=== PATIENT | female | born 1960 | race Caucasian/White ===

== ENCOUNTER → 2016-08-29 | Outpatient (REF) | payer OTHER ==
[~2016-08-29] MED LIST: CORE6.25 PO; IBUP200C PO; JANU100T PO; LISI20TA PO; METF1000 PO; OMEP40CA2 PO; ONGL1TAB9 PO; PEPC1TAB2 PO; PRIL20CA9 PO
[2016-08-29 18:02] LABS: ALBUMIN 3.6 GM/DL (3.2-5.2); ALBUMIN/GLOBULIN RATIO 0.88 (1.00-1.93); ALKALINE PHOSPHATASE 86 U/L (45-117); ALT/SGPT 18 U/L (12-78); ANION GAP 9 MEQ/L (8-16); AST/SGOT 10 U/L (15-37); BILIRUBIN,TOTAL 0.3 MG/DL (0.2-1.0); BLOOD UREA NITROGEN 11 MG/DL (7-18); CALCIUM LEVEL 8.6 MG/DL (8.5-10.1); CARBON DIOXIDE LEVEL 28 MEQ/L (21-32); CHLORIDE LEVEL 105 MEQ/L (98-107); CHOLESTEROL LEVEL 149 MG/DL (<200); CREATININE FOR GFR 0.63 MG/DL (0.55-1.02); GLOMERULAR FILTRATION RATE > 60.0 (>51); GLUCOSE, FASTING 162 MG/DL (70-105); POTASSIUM SERUM 4.6 MEQ/L (3.5-5.1); SODIUM LEVEL 142 MEQ/L (136-145); TOTAL PROTEIN 7.7 GM/DL (6.4-8.2); TRIGLYCERIDES LEVEL 106 MG/DL (<150)
== END ==
LOC: M LAB REF 16:32
PROVIDERS: ATTEND Nurse Practitioner Family
DX: R82.99 Other abnormal findings in urine (principal); E55.9 Vitamin D deficiency, unspecified; E78.00 Pure hypercholesterolemia, unspecified

== ENCOUNTER → 2016-12-05 | Outpatient (REF) | payer OTHER ==
[2016-12-05 14:34] LABS: ANION GAP 7 MEQ/L (8-16); BLOOD UREA NITROGEN 10 MG/DL (7-18); CALCIUM LEVEL 9.1 MG/DL (8.5-10.1); CARBON DIOXIDE LEVEL 30 MEQ/L (21-32); CHLORIDE LEVEL 101 MEQ/L (98-107); CREATININE FOR GFR 0.69 MG/DL (0.55-1.02); GLOMERULAR FILTRATION RATE > 60.0 (>51); GLUCOSE, FASTING 146 MG/DL (70-105); POTASSIUM SERUM 4.5 MEQ/L (3.5-5.1); SODIUM LEVEL 138 MEQ/L (136-145)
== END ==
LOC: M LAB REF 13:18
PROVIDERS: ATTEND Nurse Practitioner Family
DX: E11.9 Type 2 diabetes mellitus without complications (principal)

== ENCOUNTER → 2017-01-29 | Outpatient (REF) | payer OTHER ==
[~2017-01-29] MED LIST changes: -IBUP200C PO; +IBUP200C10 PO; -METF1000 PO; +METF10004 PO
[2017-01-29 15:36] LABS: ALBUMIN 3.7 GM/DL (3.2-5.2); ALBUMIN/GLOBULIN RATIO 0.95 (1.00-1.93); ALKALINE PHOSPHATASE 71 U/L (45-117); ALT/SGPT 20 U/L (12-78); ANION GAP 6 MEQ/L (8-16); AST/SGOT 8 U/L (15-37); BILIRUBIN,TOTAL 0.3 MG/DL (0.2-1.0); BLOOD UREA NITROGEN 6 MG/DL (7-18); CALCIUM LEVEL 8.7 MG/DL (8.5-10.1); CARBON DIOXIDE LEVEL 29 MEQ/L (21-32); CHLORIDE LEVEL 104 MEQ/L (98-107); CREATININE FOR GFR 0.63 MG/DL (0.55-1.02); GLOMERULAR FILTRATION RATE > 60.0 (>51); GLUCOSE, FASTING 126 MG/DL (70-105); POTASSIUM SERUM 3.8 MEQ/L (3.5-5.1); SODIUM LEVEL 139 MEQ/L (136-145); TOTAL PROTEIN 7.6 GM/DL (6.4-8.2)
== END ==
LOC: M LAB REF 13:28
PROVIDERS: ATTEND Nurse Practitioner Family
DX: E55.9 Vitamin D deficiency, unspecified (principal); E11.9 Type 2 diabetes mellitus without complications

== ENCOUNTER → 2017-02-07 | Outpatient (CLI) | payer OTHER ==
--- NOTE | 2017-02-07 11:37 | REP ---
BILATERAL FOOT SERIES: Eight views. HISTORY: Pain. FINDINGS: Four views of each foot demonstrate vascular calcification bilaterally. There are bilateral plantar and Achilles calcaneal spurs. There is mild spurring at the 1st MTP joint on each side. No erosive changes seen. No fracture is noted. IMPRESSION: Bilateral heel spurs and vascular calcification. Minimal spurring at the 1st MTP joints bilaterally as well. Signed by Casey Tamayo MD 02/07/2017 11:52 A
== END ==
LOC: M RAD 10:38
PROVIDERS: ATTEND Family Medicine Addiction Medicine
DX: M79.671 Pain in right foot (principal); M79.672 Pain in left foot; M77.31 Calcaneal spur, right foot; M77.32 Calcaneal spur, left foot

== ENCOUNTER 2017-09-19 16:21 | Emergency (ER) | payer OTHER, MEDICAID ==
[2017-09-19] MEDS: IBUPROFEN 600 MG TAB PO (17:45)
== END 2017-09-19 18:11 | disposition home or self-care (01) ==
LOC: M ED 16:21
DX: S52.502A Unspecified fracture of the lower end of left radius, initial encounter for closed fracture (principal); S52.602A Unspecified fracture of lower end of left ulna, initial encounter for closed fracture; W19.XXXA Unspecified fall, initial encounter; Y92.9 Unspecified place or not applicable; Y93.9 Activity, unspecified; I51.9 Heart disease, unspecified; E11.9 Type 2 diabetes mellitus without complications; Z79.84 Long term (current) use of oral hypoglycemic drugs; Z79.899 Other long term (current) drug therapy; Z88.6 Allergy status to analgesic agent; Z88.0 Allergy status to penicillin; Z88.5 Allergy status to narcotic agent; Z88.8 Allergy status to other drugs, medicaments and biological substances
CPT/HCPCS: 73110

== ENCOUNTER → 2017-12-29 | Outpatient (REF) | payer OTHER ==
[2017-12-29 15:54] LABS: BASO % 0.3 % (0.0-1.0); EOS # 0.1 10^3/uL (0.0-0.50); EOS % 2.4 % (0.0-3.0); HEMATOCRIT 42.2 % (36.0-47.0); HEMOGLOBIN 13.3 g/dl (12.0-15.5); IMMATURE GRANULOCYTE % 0.2 % (0-3.0); LYMPH # 1.4 10^3/uL (1.5-4.5); LYMPH % 24.1 % (24.0-44.0); MEAN CORPUSCULAR HEMOGLOBIN 27.1 pg (27.0-33.0); MEAN CORPUSCULAR HGB CONC 31.5 g/dl (32.0-36.5); MEAN CORPUSCULAR VOLUME 86.1 fl (80.0-96.0); MONO # 0.3 10^3/uL (0.0-0.8); MONO % 5.7 % (0.0-5.0); NEUTROPHILS # 3.9 10^3/uL (1.8-7.7); NEUTROPHILS % 67.3 % (36.0-66.0); PLATELET COUNT, AUTOMATED 322 10^3/uL (150-450); RED CELL DISTRIBUTION WIDTH 14.6 % (11.5-14.5); WHITE BLOOD COUNT 5.8 10^3/uL (4.0-10.0)
[2017-12-29 16:10] LABS: ALBUMIN 3.4 GM/DL (3.2-5.2); ALBUMIN/GLOBULIN RATIO 0.83 (1.00-1.93); ALKALINE PHOSPHATASE 95 U/L (45-117); ALT/SGPT 16 U/L (12-78); ANION GAP 10 MEQ/L (8-16); AST/SGOT 10 U/L (7-37); BILIRUBIN,TOTAL 0.4 MG/DL (0.2-1.0); BLOOD UREA NITROGEN 5 MG/DL (7-18); C REACTIVE PROTEIN QUANTITATIV < 0.30 MG/DL (0.00-0.30); CALCIUM LEVEL 8.9 MG/DL (8.5-10.1); CARBON DIOXIDE LEVEL 27 MEQ/L (21-32); CHLORIDE LEVEL 100 MEQ/L (98-107); CREATININE FOR GFR 0.67 MG/DL (0.55-1.30); GLOMERULAR FILTRATION RATE > 60.0 (>51); GLUCOSE, FASTING 304 MG/DL (70-100); RHEUMATOID FACTOR QUANT < 10.0 IU/ML (<15.0); SODIUM LEVEL 137 MEQ/L (136-145); TOTAL PROTEIN 7.5 GM/DL (6.4-8.2); URIC ACID 3.1 MG/DL (2.6-6.0)
[2017-12-29 16:26] LABS: ERYTHROCYTE SEDIMENTATION RATE 27 mm/hr (0-30)
[2018-01-08 00:09] LABS: ANTINUCLEAR ANTIBODIES DIRECT Negative (Negative); HLA-B27 Negative (.); Lyme Disease IgG/IgM Antibodie <0.91 ISR (0.00-0.90); Lyme Disease IgM Ab Quantitati <0.80 index (0.00-0.79)
== END ==
LOC: M LABDRAW1 11:29
DX: S52.592D Other fractures of lower end of left radius, subsequent encounter for closed fracture with routine healing (principal); W18.30XD Fall on same level, unspecified, subsequent encounter; Y92.009 Unspecified place in unspecified non-institutional (private) residence as the place of occurrence of the external cause

== ENCOUNTER 2018-05-14 14:46 | Emergency (ER) | payer OTHER ==
[2018-05-14 16:11] LABS: BEDSIDE GLUCOSE 388 MG/DL (70-105)
[2018-05-14 16:41] LABS: BASO % 0.4 % (0.0-1.0); EOS # 0.2 10^3/uL (0.0-0.50); EOS % 1.9 % (0.0-3.0); HEMATOCRIT 43.4 % (36.0-47.0); HEMOGLOBIN 13.9 g/dl (12.0-15.5); IMMATURE GRANULOCYTE % 0.3 % (0-3.0); LYMPH # 2.1 10^3/uL (1.5-4.5); LYMPH % 26.3 % (24.0-44.0); MEAN CORPUSCULAR HEMOGLOBIN 27.6 pg (27.0-33.0); MEAN CORPUSCULAR VOLUME 86.3 fl (80.0-96.0); MONO # 0.4 10^3/uL (0.0-0.8); MONO % 4.7 % (0.0-5.0); NEUTROPHILS # 5.2 10^3/uL (1.8-7.7); NEUTROPHILS % 66.4 % (36.0-66.0); PLATELET COUNT, AUTOMATED 306 10^3/uL (150-450); RED BLOOD COUNT 5.03 10^6/uL (4.00-5.40); RED CELL DISTRIBUTION WIDTH 13.7 % (11.5-14.5); WHITE BLOOD COUNT 7.9 10^3/uL (4.0-10.0)
[2018-05-14] MEDS: HumuLIN R (REGULAR) INSULIN (NovoLIN R) **100U/ML** PER UNIT SC (17:11)
[2018-05-14 17:12] LABS: ALBUMIN 3.5 GM/DL (3.2-5.2); ALBUMIN/GLOBULIN RATIO 0.81 (1.00-1.93); ALKALINE PHOSPHATASE 101 U/L (45-117); ALT/SGPT 24 U/L (12-78); ANION GAP 9 MEQ/L (8-16); AST/SGOT 14 U/L (7-37); BILIRUBIN,DIRECT < 0.1 MG/DL (0.0-0.2); BILIRUBIN,TOTAL 0.2 MG/DL (0.2-1.0); BLOOD UREA NITROGEN 8 MG/DL (7-18); CALCIUM LEVEL 8.5 MG/DL (8.5-10.1); CARBON DIOXIDE LEVEL 29 MEQ/L (21-32); CHLORIDE LEVEL 100 MEQ/L (98-107); CREATININE FOR GFR 0.81 MG/DL (0.55-1.30); GLOMERULAR FILTRATION RATE > 60.0 (>51); GLUCOSE, FASTING 372 MG/DL (70-100); LIPASE 159 U/L (73-393); POTASSIUM SERUM 3.7 MEQ/L (3.5-5.1); SODIUM LEVEL 138 MEQ/L (136-145); TOTAL PROTEIN 7.8 GM/DL (6.4-8.2)
[2018-05-14] MEDS: IBUPROFEN 600 MG TAB PO (18:15)
[2018-05-14 18:19] LABS: BEDSIDE GLUCOSE 305 MG/DL (70-105)
[2018-05-14] MEDS: LISINOPRIL 20 MG TAB PO (19:50)
== END 2018-05-14 19:59 | disposition home or self-care (01) ==
LOC: M ED 14:46
DX: R51 Headache (principal); E11.9 Type 2 diabetes mellitus without complications; Z76.0 Encounter for issue of repeat prescription; F32.9 Major depressive disorder, single episode, unspecified; I10 Essential (primary) hypertension; K21.9 Gastro-esophageal reflux disease without esophagitis; E78.00 Pure hypercholesterolemia, unspecified
CPT/HCPCS: 83690

== ENCOUNTER → 2018-05-27 | Outpatient (REF) | payer OTHER ==
[2018-05-27 18:56] LABS: ALBUMIN 3.5 GM/DL (3.2-5.2); ALBUMIN/GLOBULIN RATIO 0.83 (1.00-1.93); ALKALINE PHOSPHATASE 86 U/L (45-117); ALT/SGPT 20 U/L (12-78); ANION GAP 9 MEQ/L (8-16); AST/SGOT 11 U/L (7-37); BILIRUBIN,TOTAL 0.3 MG/DL (0.2-1.0); BLOOD UREA NITROGEN 14 MG/DL (7-18); CALCIUM LEVEL 9.1 MG/DL (8.5-10.1); CARBON DIOXIDE LEVEL 28 MEQ/L (21-32); CHLORIDE LEVEL 98 MEQ/L (98-107); CHOLESTEROL LEVEL 282 MG/DL (<200); CREATININE FOR GFR 0.68 MG/DL (0.55-1.30); GLOMERULAR FILTRATION RATE > 60.0 (>51); GLUCOSE, FASTING 349 MG/DL (70-100); HDL CHOLESTEROL 47 MG/DL (>40); LDL CHOLESTEROL 188 MG/DL (<100); NON-HDL-C 235 MG/DL; POTASSIUM SERUM 4.8 MEQ/L (3.5-5.1); SODIUM LEVEL 135 MEQ/L (136-145); TOTAL 25(OH) VITAMIN D 22.3 NG/ML (30.0-100.0); TOTAL PROTEIN 7.7 GM/DL (6.4-8.2); TRIGLYCERIDES LEVEL 237 MG/DL (<150)
[2018-05-27 19:23] LABS: BASO % 0.5 % (0.0-1.0); EOS # 0.2 10^3/uL (0.0-0.50); EOS % 2.3 % (0.0-3.0); HEMATOCRIT 42.3 % (36.0-47.0); HEMOGLOBIN 13.5 g/dl (12.0-15.5); IMMATURE GRANULOCYTE % 0.4 % (0-3.0); LYMPH # 1.8 10^3/uL (1.5-4.5); LYMPH % 21.6 % (24.0-44.0); MEAN CORPUSCULAR HEMOGLOBIN 27.4 pg (27.0-33.0); MEAN CORPUSCULAR HGB CONC 31.9 g/dl (32.0-36.5); MEAN CORPUSCULAR VOLUME 85.8 fl (80.0-96.0); MONO # 0.4 10^3/uL (0.0-0.8); MONO % 4.2 % (0.0-5.0); PLATELET COUNT, AUTOMATED 308 10^3/uL (150-450); RED BLOOD COUNT 4.93 10^6/uL (4.00-5.40); RED CELL DISTRIBUTION WIDTH 13.7 % (11.5-14.5); WHITE BLOOD COUNT 8.4 10^3/uL (4.0-10.0)
[2018-05-27 20:01] LABS: ESTIMATED AVERAGE GLUCOSE 384 MG/DL (60-110)
== END ==
LOC: M LAB REF 16:57
DX: I10 Essential (primary) hypertension (principal); E11.9 Type 2 diabetes mellitus without complications; Z13.9 Encounter for screening, unspecified
CPT/HCPCS: 84443

== ENCOUNTER → 2018-05-29 | Outpatient (CLI) | payer OTHER | LOC: M RAD 12:18 | DX: Z12.31 Encounter for screening mammogram for malignant neoplasm of breast (principal); Z86.018 Personal history of other benign neoplasm; Z92.0 Personal history of contraception | CPT/HCPCS: 77067 ==

== ENCOUNTER → 2018-09-30 | Outpatient (REF) | payer OTHER ==
[~2018-09-30] MED LIST changes: +CARV6.25 PO; +IBUP-1022 PO; -IBUP200C10 PO; +IBUP200C25 PO; -PEPC1TAB2 PO; +PEPC40TA12 PO
[2018-09-30 19:10] LABS: ALBUMIN 3.8 GM/DL (3.2-5.2); ALT/SGPT 18 U/L (12-78); BILIRUBIN,TOTAL 0.4 MG/DL (0.2-1.0); BLOOD UREA NITROGEN 9 MG/DL (7-18); CALCIUM LEVEL 8.6 MG/DL (8.5-10.1); CARBON DIOXIDE LEVEL 29 MEQ/L (21-32); CHLORIDE LEVEL 100 MEQ/L (98-107); CHOLESTEROL LEVEL 295 MG/DL (<200); CHOLESTEROL RISK RATIO 5.363 (<5); CREATININE FOR GFR 0.68 MG/DL (0.55-1.30); GLOMERULAR FILTRATION RATE > 60.0 (>51); GLUCOSE, FASTING 260 MG/DL (70-100); HDL CHOLESTEROL 55 MG/DL (>40); LDL CHOLESTEROL 210 MG/DL (<100); NON-HDL-C 240 MG/DL; POTASSIUM SERUM 3.9 MEQ/L (3.5-5.1); SODIUM LEVEL 136 MEQ/L (136-145); TOTAL 25(OH) VITAMIN D 18.6 NG/ML (30.0-100.0); TOTAL PROTEIN 7.5 GM/DL (6.4-8.2); TRIGLYCERIDES LEVEL 150 MG/DL (<150)
[2018-09-30 19:11] LABS: BASO % 0.4 % (0.0-1.0); EOS # 0.2 10^3/uL (0.0-0.50); EOS % 2.1 % (0.0-3.0); HEMATOCRIT 39.9 % (36.0-47.0); HEMOGLOBIN 12.8 g/dl (12.0-15.5); LYMPH # 2.4 10^3/uL (1.5-4.5); LYMPH % 25.4 % (24.0-44.0); MEAN CORPUSCULAR HEMOGLOBIN 27.2 pg (27.0-33.0); MEAN CORPUSCULAR HGB CONC 32.1 g/dl (32.0-36.5); MEAN CORPUSCULAR VOLUME 84.7 fl (80.0-96.0); MONO # 0.4 10^3/uL (0.0-0.8); MONO % 3.9 % (0.0-5.0); NEUTROPHILS # 6.5 10^3/uL (1.8-7.7); PLATELET COUNT, AUTOMATED 365 10^3/uL (150-450); RED BLOOD COUNT 4.71 10^6/uL (4.00-5.40); WHITE BLOOD COUNT 9.5 10^3/uL (4.0-10.0)
[2018-09-30 19:20] LABS: HEMOGLOBIN A1c 10.3 %
== END ==
LOC: M LAB REF 18:13
PROVIDERS: ATTEND Nurse Practitioner Family
DX: I10 Essential (primary) hypertension (principal); Z13.9 Encounter for screening, unspecified; E11.9 Type 2 diabetes mellitus without complications

== ENCOUNTER → 2019-01-07 | Outpatient (REF) | payer OTHER ==
[2019-01-07 18:25] LABS: BASO % 0.4 % (0.0-1.0); EOS # 0.1 10^3/uL (0.0-0.50); EOS % 1.6 % (0.0-3.0); HEMATOCRIT 39.8 % (36.0-47.0); HEMOGLOBIN 12.6 g/dl (12.0-15.5); LYMPH % 26.3 % (24.0-44.0); MEAN CORPUSCULAR HEMOGLOBIN 27.2 pg (27.0-33.0); MEAN CORPUSCULAR HGB CONC 31.7 g/dl (32.0-36.5); MONO # 0.3 10^3/uL (0.0-0.8); MONO % 3.7 % (0.0-5.0); NEUTROPHILS # 5.2 10^3/uL (1.8-7.7); NEUTROPHILS % 67.7 % (36.0-66.0); PLATELET COUNT, AUTOMATED 320 10^3/uL (150-450); RED BLOOD COUNT 4.63 10^6/uL (4.00-5.40); WHITE BLOOD COUNT 7.6 10^3/uL (4.0-10.0)
[2019-01-07 18:31] LABS: ALBUMIN 3.2 GM/DL (3.2-5.2); ALT/SGPT 17 U/L (12-78); BILIRUBIN,TOTAL 0.3 MG/DL (0.2-1.0); BLOOD UREA NITROGEN 10 MG/DL (7-18); CALCIUM LEVEL 8.7 MG/DL (8.5-10.1); CARBON DIOXIDE LEVEL 28 MEQ/L (21-32); CHLORIDE LEVEL 103 MEQ/L (98-107); CHOLESTEROL LEVEL 245 MG/DL (<200); CHOLESTEROL RISK RATIO 5.212 (<5); CREATININE FOR GFR 0.74 MG/DL (0.55-1.30); GLOMERULAR FILTRATION RATE > 60.0 (>51); GLUCOSE, FASTING 303 MG/DL (70-100); HDL CHOLESTEROL 47 MG/DL (>40); LDL CHOLESTEROL 148 MG/DL (<100); NON-HDL-C 198 MG/DL; POTASSIUM SERUM 4.6 MEQ/L (3.5-5.1); SODIUM LEVEL 137 MEQ/L (136-145); TRIGLYCERIDES LEVEL 251 MG/DL (<150)
[2019-01-07 19:26] LABS: HEMOGLOBIN A1c 14.5 %
== END ==
LOC: M LAB REF 17:20
PROVIDERS: ATTEND Nurse Practitioner Family
DX: I10 Essential (primary) hypertension (principal)

== ENCOUNTER 2019-02-17 14:08 | Emergency (ER) | payer OTHER ==
[~2019-02-17] VITALS: Ht 149.9 cm; Wt 73.3 kg
[~2019-02-17 14:08] MED LIST changes: -LISI20TA PO; +LISI20TA19 PO
--- NOTE | 2019-02-17 14:46 | REP ---
Portable chest x-ray: Single view. History: Chest pain. Comparison chest x-ray: November 20, 2015. Findings: There is a large hiatal hernia again noted behind the heart. Heart is not enlarged. Lungs are well inflated and clear. Pleural angles are sharp. Pulmonary vasculature is not increased. Impression: Large hiatal hernia. Otherwise no acute disease. Electronically Signed by Casey Tamayo MD 02/17/2019 02:38 P
[2019-02-17 14:52] LABS: BASO % 0.4 % (0.0-1.0); EOS # 0.2 10^3/uL (0.0-0.5); EOS % 2.5 % (0.0-3.0); HEMATOCRIT 39.1 % (36.0-47.0); HEMOGLOBIN 12.6 g/dl (12.0-15.5); LYMPH # 1.7 10^3/uL (1.5-5.0); LYMPH % 21.9 % (24.0-44.0); MEAN CORPUSCULAR HGB CONC 32.2 g/dl (32.0-36.5); MEAN CORPUSCULAR VOLUME 83.7 fl (80.0-96.0); MONO # 0.4 10^3/uL (0.0-0.8); MONO % 5.1 % (0.0-5.0); NEUTROPHILS # 5.3 10^3/uL (1.5-8.5); NEUTROPHILS % 69.8 % (36.0-66.0); PLATELET COUNT, AUTOMATED 322 10^3/uL (150-450); RED BLOOD COUNT 4.67 10^6/uL (4.00-5.40); WHITE BLOOD COUNT 7.6 10^3/uL (4.0-10.0)
[2019-02-17] MEDS ORDERED: NS 1,000 ML IV SCH (14:53)
[2019-02-17] MEDS ORDERED: ASPIRIN 81 MG CHEW TABLET PO ONE (15:00)
[2019-02-17] MEDS ORDERED: LISINOPRIL 20 MG TAB PO ONE (15:00)
[2019-02-17 15:34] LABS: ALBUMIN 3.5 GM/DL (3.2-5.2); ALT/SGPT 16 U/L (12-78); BILIRUBIN,DIRECT < 0.1 MG/DL (0.0-0.2); BILIRUBIN,TOTAL 0.2 MG/DL (0.2-1.0); BLOOD UREA NITROGEN 16 MG/DL (7-18); CALCIUM LEVEL 9.9 MG/DL (8.5-10.1); CARBON DIOXIDE LEVEL 28 MEQ/L (21-32); CHLORIDE LEVEL 100 MEQ/L (98-107); CK-MB VALUE MASS < 1.0 NG/ML (<3.6); CPK CREATINE PHOSPHOKINASE 34 U/L (26-192); CREATININE FOR GFR 0.92 MG/DL (0.55-1.30); GLOMERULAR FILTRATION RATE > 60.0 (>51); GLUCOSE, FASTING 395 MG/DL (70-100); LIPASE 236 U/L (73-393); MB/CK RELATIVE INDEX 2.94 (< OR =4); POTASSIUM SERUM 5.6 MEQ/L (3.5-5.1); SODIUM LEVEL 136 MEQ/L (136-145); TOTAL PROTEIN 7.8 GM/DL (6.4-8.2); TROPONIN I < 0.02 NG/ML (< 0.10)
[2019-02-17] MEDS ORDERED: NS 500 ML IV ONE (15:45)
[2019-02-17] MEDS ORDERED: HumuLIN R (REGULAR) INSULIN (NovoLIN R) **100U/ML** PER UNIT IV ONE (15:45)
[2019-02-17 15:51] LABS: INR 0.92; PROTHROMBIN TIME 12.1 SECONDS (11.8-14.0)
[2019-02-17 17:30] VITALS: BP 138/77
--- NOTE | 2019-02-17 20:30 | ECGEPIP ---
[facility] - ED Test Date: 2019-02-17 Pat Name: FOSTER MUHAMMAD Department: Room: - Gender: Female E Business Consultant: ALIRIO : 1960 Requested By: OSWALD VIDES Order Number: [id number] Reading MD: Irma Swift Measurements Intervals [place] Rate: 100 P: 37 VA: 130 QRS: 15 QRSD: 82 T: 6 QT: 342 QTc: 443 Interpretive Statements SINUS TACHYCARDIA MINIMAL ST DEPRESSION ABNORMAL RHYTHM ECG PRWP INCREASED RATE 05/31/15 Electronically Signed on 02-17-2019 20:30:14 EDT by Irma Swift
== END 2019-02-17 18:22 | disposition home or self-care (01) ==
LOC: M ED 14:08
DX: E11.65 Type 2 diabetes mellitus with hyperglycemia (principal); I10 Essential (primary) hypertension; R00.0 Tachycardia, unspecified; R94.31 Abnormal electrocardiogram [ECG] [EKG]; I51.9 Heart disease, unspecified; E78.5 Hyperlipidemia, unspecified; K21.9 Gastro-esophageal reflux disease without esophagitis; K44.9 Diaphragmatic hernia without obstruction or gangrene; Z79.84 Long term (current) use of oral hypoglycemic drugs; Z79.899 Other long term (current) drug therapy; Z88.0 Allergy status to penicillin; Z88.8 Allergy status to other drugs, medicaments and biological substances; Z88.6 Allergy status to analgesic agent; Z88.5 Allergy status to narcotic agent

== ENCOUNTER → 2019-03-26 | Outpatient (CLI) | payer OTHER ==
[~2019-03-26] MED LIST changes: -OMEP40CA2 PO; +OMEP40CA97 PO
[2019-03-26 13:42] LABS: BASO % 0.3 % (0.0-1.0); EOS # 0.2 10^3/uL (0.0-0.5); EOS % 2.8 % (0.0-3.0); HEMATOCRIT 38.8 % (36.0-47.0); HEMOGLOBIN 12.5 g/dl (12.0-15.5); LYMPH # 2.1 10^3/uL (1.5-5.0); LYMPH % 31.3 % (24.0-44.0); MEAN CORPUSCULAR HEMOGLOBIN 27.7 pg (27.0-33.0); MEAN CORPUSCULAR HGB CONC 32.2 g/dl (32.0-36.5); MEAN CORPUSCULAR VOLUME 85.8 fl (80.0-96.0); MONO # 0.3 10^3/uL (0.0-0.8); MONO % 4.9 % (0.0-5.0); NEUTROPHILS # 4.1 10^3/uL (1.5-8.5); NEUTROPHILS % 60.6 % (36.0-66.0); PLATELET COUNT, AUTOMATED 333 10^3/uL (150-450); RED BLOOD COUNT 4.52 10^6/uL (4.00-5.40); WHITE BLOOD COUNT 6.7 10^3/uL (4.0-10.0)
[2019-03-26 14:01] LABS: HEMOGLOBIN A1c 12.1 %
[2019-03-26 15:33] LABS: ALBUMIN 3.4 GM/DL (3.2-5.2); ALT/SGPT 16 U/L (12-78); BILIRUBIN,TOTAL 0.6 MG/DL (0.2-1.0); BLOOD UREA NITROGEN 7 MG/DL (7-18); CALCIUM LEVEL 8.7 MG/DL (8.5-10.1); CARBON DIOXIDE LEVEL 27 MEQ/L (21-32); CHLORIDE LEVEL 102 MEQ/L (98-107); CHOLESTEROL LEVEL 228 MG/DL (<200); CHOLESTEROL RISK RATIO 5.066 (<5); CREATININE FOR GFR 0.66 MG/DL (0.55-1.30); GLOMERULAR FILTRATION RATE > 60.0 (>51); GLUCOSE, FASTING 276 MG/DL (70-100); HDL CHOLESTEROL 45 MG/DL (>40); LDL CHOLESTEROL 151 MG/DL (<100); NON-HDL-C 183 MG/DL; POTASSIUM SERUM 4.3 MEQ/L (3.5-5.1); SODIUM LEVEL 136 MEQ/L (136-145); TOTAL PROTEIN 7.4 GM/DL (6.4-8.2); TRIGLYCERIDES LEVEL 158 MG/DL (<150)
== END ==
LOC: M LAB 12:44
PROVIDERS: ATTEND Nurse Practitioner Family
DX: E11.9 Type 2 diabetes mellitus without complications (principal); I10 Essential (primary) hypertension

== ENCOUNTER 2019-05-25 12:44 | Emergency (ER) | payer OTHER ==
[~2019-05-25] VITALS: Ht 149.9 cm; Wt 75.5 kg
[2019-05-25 14:05] LABS: VENOUS BASE EXCESS -0.6 (-2.0-2.0); VENOUS HCO3 26.8 MEQ/L (23.0-27.0); VENOUS O2 SATURATION 40.1 % (60.0-80.0); VENOUS PARTIAL PRESSURE CO2 55.1 mmHg (38.0-50.0); VENOUS PARTIAL PRESSURE O2 24.7 mmHg (30.0-50.0); VENOUS PH 7.305 UNITS (7.330-7.430); VENOUS STANDARD HCO3 22.5 MEQ/L; VENOUS TOTAL CO2 28.5 MEQ/L (24.0-28.0)
[2019-05-25 14:09] LABS: HEMATOCRIT 45.6 % (36.0-47.0); HEMOGLOBIN 14.7 g/dl (12.0-15.5); MEAN CORPUSCULAR HEMOGLOBIN 27.3 pg (27.0-33.0); MEAN CORPUSCULAR HGB CONC 32.2 g/dl (32.0-36.5); MEAN CORPUSCULAR VOLUME 84.8 fl (80.0-96.0); PLATELET COUNT, AUTOMATED 359 10^3/uL (150-450); RED BLOOD COUNT 5.38 10^6/uL (4.00-5.40)
[2019-05-25 14:39] LABS: OSMOLALITY SERUM 301 MOSM/KG (275-295)
[2019-05-25 14:51] LABS: ACETONE/KETONE 4.88 MG/DL (<2.81); ALT/SGPT 20 U/L (12-78); BILIRUBIN,DIRECT 0.1 MG/DL (0.0-0.2); BILIRUBIN,TOTAL 0.4 MG/DL (0.2-1.0); BLOOD UREA NITROGEN 9 MG/DL (7-18); CALCIUM LEVEL 9.8 MG/DL (8.5-10.1); CARBON DIOXIDE LEVEL 30 MEQ/L (21-32); CHLORIDE LEVEL 96 MEQ/L (98-107); CK-MB VALUE MASS 1.1 NG/ML (<3.6); CPK CREATINE PHOSPHOKINASE 43 U/L (26-192); CREATININE FOR GFR 0.88 MG/DL (0.55-1.30); GLOMERULAR FILTRATION RATE > 60.0 (>51); GLUCOSE, FASTING 409 MG/DL (70-100); LIPASE 238 U/L (73-393); MAGNESIUM LEVEL 1.9 MG/DL (1.8-2.4); MB/CK RELATIVE INDEX 2.56 (< OR =4); POTASSIUM SERUM 4.5 MEQ/L (3.5-5.1); SODIUM LEVEL 133 MEQ/L (136-145); TOTAL PROTEIN 8.8 GM/DL (6.4-8.2); TROPONIN I < 0.02 NG/ML (< 0.10)
[2019-05-25 14:54] LABS: HEMOGLOBIN A1c 13.5 %
[2019-05-25] MEDS ORDERED: lisinopriL 20 MG TAB PO ONE (15:15)
[2019-05-25] MEDS ORDERED: NS 1,000 ML IV ONE (15:15)
[2019-05-25] MEDS ORDERED: CARVedilol 6.25 MG TAB PO ONE (15:15)
[2019-05-25] MEDS ORDERED: metFORMIN (GLUCOPHAGE) 1000 MG TABLET PO ONE (15:15)
[2019-05-25 15:24] VITALS: BP 190/104
[2019-05-25 17:13] VITALS: BP 156/92
== END 2019-05-25 17:16 | disposition home or self-care (01) ==
LOC: M ED 12:44
DX: E11.65 Type 2 diabetes mellitus with hyperglycemia (principal); I10 Essential (primary) hypertension; Z91.14 Patient's other noncompliance with medication regimen; E78.5 Hyperlipidemia, unspecified; K21.9 Gastro-esophageal reflux disease without esophagitis; Z79.84 Long term (current) use of oral hypoglycemic drugs; Z79.899 Other long term (current) drug therapy; Z88.0 Allergy status to penicillin; Z88.6 Allergy status to analgesic agent; Z88.5 Allergy status to narcotic agent; Z88.8 Allergy status to other drugs, medicaments and biological substances

== ENCOUNTER → 2019-07-02 | Outpatient (REF) | payer OTHER, MEDICAID ==
[2019-07-02 13:33] LABS: ALBUMIN 3.6 GM/DL (3.2-5.2); ALT/SGPT 24 U/L (12-78); BILIRUBIN,TOTAL 0.2 MG/DL (0.2-1.0); BLOOD UREA NITROGEN 11 MG/DL (7-18); CALCIUM LEVEL 8.7 MG/DL (8.5-10.1); CARBON DIOXIDE LEVEL 28 MEQ/L (21-32); CHLORIDE LEVEL 104 MEQ/L (98-107); CHOLESTEROL LEVEL 320 MG/DL (<200); GLOMERULAR FILTRATION RATE > 60.0 (>51); GLUCOSE, FASTING 140 MG/DL (70-100); HDL CHOLESTEROL 49 MG/DL (>40); LDL CHOLESTEROL 232 MG/DL (<100); NON-HDL-C 271 MG/DL; POTASSIUM SERUM 4.4 MEQ/L (3.5-5.1); SODIUM LEVEL 139 MEQ/L (136-145); TOTAL PROTEIN 7.6 GM/DL (6.4-8.2); TRIGLYCERIDES LEVEL 194 MG/DL (<150)
[2019-07-02 13:42] LABS: HEMOGLOBIN A1c 12.6 %
[2019-07-02 14:07] LABS: CREATININE, URINE 35.3 MG/DL; MALB URINE SIEMENS 18.7 MG/L; MAU/CREAT RATIO 52.9 MCG/MG (0.0-30.0)
== END ==
LOC: M LAB REF 12:15
PROVIDERS: ATTEND Family Medicine
DX: E11.9 Type 2 diabetes mellitus without complications (principal)

== ENCOUNTER → 2019-11-09 | Outpatient (REF) | payer OTHER, MEDICAID ==
[2019-11-09 12:30] LABS: BASO # 0.1 10^3/uL (0.0-0.2); BASO % 0.5 % (0.0-1.0); EOS # 0.4 10^3/uL (0.0-0.5); EOS % 4.6 % (0.0-3.0); HEMOGLOBIN 12.5 g/dl (12.0-15.5); LYMPH # 2.4 10^3/uL (1.5-5.0); LYMPH % 25.1 % (24.0-44.0); MEAN CORPUSCULAR HEMOGLOBIN 26.8 pg (27.0-33.0); MEAN CORPUSCULAR HGB CONC 31.3 g/dl (32.0-36.5); MEAN CORPUSCULAR VOLUME 85.8 fl (80.0-96.0); MONO # 0.4 10^3/uL (0.0-0.8); MONO % 4.4 % (0.0-5.0); NEUTROPHILS # 6.2 10^3/uL (1.5-8.5); NEUTROPHILS % 65.2 % (36.0-66.0); PLATELET COUNT, AUTOMATED 138 10^3/uL (150-450); RED BLOOD COUNT 4.66 10^6/uL (4.00-5.40); WHITE BLOOD COUNT 9.5 10^3/uL (4.0-10.0)
[2019-11-09 13:01] LABS: ALBUMIN 3.5 GM/DL (3.2-5.2); ALT/SGPT 17 U/L (12-78); BILIRUBIN,TOTAL 0.3 MG/DL (0.2-1.0); BLOOD UREA NITROGEN 7 MG/DL (7-18); CARBON DIOXIDE LEVEL 28 MEQ/L (21-32); CHLORIDE LEVEL 105 MEQ/L (98-107); CHOLESTEROL LEVEL 249 MG/DL (<200); CHOLESTEROL RISK RATIO 6.729 (<5); CREATININE FOR GFR 0.74 MG/DL (0.55-1.30); FREE T4 1.28 NG/DL (0.76-1.46); GLOMERULAR FILTRATION RATE > 60.0 (>51); GLUCOSE, FASTING 133 MG/DL (70-100); HDL CHOLESTEROL 37 MG/DL (>40); LDL CHOLESTEROL 163 MG/DL (<100); NON-HDL-C 212 MG/DL; POTASSIUM SERUM 3.8 MEQ/L (3.5-5.1); SODIUM LEVEL 141 MEQ/L (136-145); TOTAL PROTEIN 7.5 GM/DL (6.4-8.2); TRIGLYCERIDES LEVEL 246 MG/DL (<150)
[2019-11-09 18:37] LABS: HEMOGLOBIN A1c 8.3 %
== END ==
LOC: M LAB REF 11:41
PROVIDERS: ATTEND Physician Assistant
DX: E11.9 Type 2 diabetes mellitus without complications (principal); E78.5 Hyperlipidemia, unspecified; F43.21 Adjustment disorder with depressed mood

== ENCOUNTER → 2020-02-15 | Outpatient (REF) | payer OTHER, MEDICAID ==
[~2020-02-15] MED LIST changes: -LISI20TA19 PO; +LISI20TA35 PO
[2020-02-15 13:55] LABS: BASO % 0.4 % (0.0-1.0); EOS # 0.3 10^3/uL (0.0-0.5); EOS % 3.2 % (0.0-3.0); HEMATOCRIT 37.3 % (36.0-47.0); HEMOGLOBIN 11.7 g/dl (12.0-15.5); LYMPH # 1.8 10^3/uL (1.5-5.0); LYMPH % 22.5 % (24.0-44.0); MEAN CORPUSCULAR HEMOGLOBIN 26.6 pg (27.0-33.0); MEAN CORPUSCULAR HGB CONC 31.4 g/dl (32.0-36.5); MEAN CORPUSCULAR VOLUME 84.8 fl (80.0-96.0); MONO # 0.5 10^3/uL (0.0-0.8); MONO % 5.9 % (0.0-5.0); NEUTROPHILS # 5.3 10^3/uL (1.5-8.5); NEUTROPHILS % 67.7 % (36.0-66.0); PLATELET COUNT, AUTOMATED 307 10^3/uL (150-450); WHITE BLOOD COUNT 7.8 10^3/uL (4.0-10.0)
[2020-02-15 14:00] LABS: ALBUMIN 3.5 GM/DL (3.2-5.2); ALT/SGPT 14 U/L (12-78); BILIRUBIN,TOTAL 0.3 MG/DL (0.2-1.0); BLOOD UREA NITROGEN 9 MG/DL (7-18); CALCIUM LEVEL 8.4 MG/DL (8.5-10.1); CARBON DIOXIDE LEVEL 30 MEQ/L (21-32); CHLORIDE LEVEL 107 MEQ/L (98-107); CHOLESTEROL LEVEL 238 MG/DL (<200); CREATININE FOR GFR 0.71 MG/DL (0.55-1.30); FREE T4 1.21 NG/DL (0.76-1.46); GLOMERULAR FILTRATION RATE > 60.0 (>51); GLUCOSE, FASTING 144 MG/DL (70-100); HDL CHOLESTEROL 35 MG/DL (>40); LDL CHOLESTEROL 158 MG/DL (<100); NON-HDL-C 203 MG/DL; POTASSIUM SERUM 3.7 MEQ/L (3.5-5.1); SODIUM LEVEL 142 MEQ/L (136-145); TOTAL PROTEIN 7.2 GM/DL (6.4-8.2); TRIGLYCERIDES LEVEL 227 MG/DL (<150)
[2020-02-15 14:02] LABS: TOTAL 25(OH) VITAMIN D 15.8 NG/ML (30.0-100.0)
[2020-02-15 15:15] LABS: HEMOGLOBIN A1c 7.3 %
== END ==
LOC: M LAB REF 11:54
PROVIDERS: ATTEND Nurse Practitioner Family
DX: E11.8 Type 2 diabetes mellitus with unspecified complications (principal); E78.5 Hyperlipidemia, unspecified; Z13.9 Encounter for screening, unspecified; M54.89 Other dorsalgia; F32.9 Major depressive disorder, single episode, unspecified

== ENCOUNTER → 2020-03-14 | Outpatient (REF) | payer OTHER | LOC: M SFHCWAGY 13:08 | PROVIDERS: ATTEND Nurse Practitioner Women's Health | DX: Z12.4 Encounter for screening for malignant neoplasm of cervix (principal) ==

== ENCOUNTER → 2020-03-14 | Outpatient (CLI) | payer OTHER ==
--- NOTE | 2020-03-14 15:31 | REPMRS ---
Patient History The patient states she had a clinical breast exam in February 2020.No known family history of cancer. Benign stereotatic loc for ea lesion of the left breast, August 15, 2015. 2 benign excisional biopsies of the right breast. Took hormonal contraceptives for 10 years. 3D TOMOSYNTHESIS WAS PERFORMED. The Viola Adan lifetime risk for breast cancer is 10.6%. VOLPARA DENSITY B. Digital Woman Screen Mammo: March 14, 2020 - Exam #: [id number] Bilateral CC and MLO view(s) were taken. Technologist: Madisyn Ye, Technologist Prior study comparison: May 29, 2018, bilateral digital mammo screening bilat, performed at [facility]. July 19, 2015, digital mammo diagnostic bilateral, performed at [facility]. FINDINGS: There are scattered fibroglandular densities. There has been no change in the appearance of the mammogram from the prior studies. There is a mild amount of residual fibroglandular tissue which is fairly symmetric. There is no interval development of dominant mass, architectural distortion, or clustered microcalcification suggestive of malignancy. Assessment: BI-RADS/ACR category 1 mammogram. Negative Mammogram. Recommendation Routine screening mammogram in 1 year (for women over age 40). This mammogram was interpreted with the aid of an FDA-approved computer-aided dectection system. Electronically Signed By: Amrit Newton MD 03/14/20 [id number]
== END ==
LOC: M WHC 09:39
PROVIDERS: ATTEND Nurse Practitioner Women's Health
DX: Z12.31 Encounter for screening mammogram for malignant neoplasm of breast (principal); Z79.3 Long term (current) use of hormonal contraceptives

== ENCOUNTER → 2020-05-22 | Outpatient (REF) | payer OTHER ==
[2020-05-22 12:15] LABS: BASO % 0.4 % (0.0-1.0); EOS # 0.2 10^3/uL (0.0-0.5); EOS % 2.5 % (0.0-3.0); HEMATOCRIT 36.6 % (36.0-47.0); LYMPH # 1.7 10^3/uL (1.5-5.0); LYMPH % 19.9 % (24.0-44.0); MEAN CORPUSCULAR HEMOGLOBIN 25.6 pg (27.0-33.0); MEAN CORPUSCULAR HGB CONC 30.1 g/dl (32.0-36.5); MEAN CORPUSCULAR VOLUME 85.3 fl (80.0-96.0); MONO # 0.4 10^3/uL (0.0-0.8); NEUTROPHILS # 6.2 10^3/uL (1.5-8.5); NEUTROPHILS % 71.8 % (36.0-66.0); PLATELET COUNT, AUTOMATED 343 10^3/uL (150-450); RED BLOOD COUNT 4.29 10^6/uL (4.00-5.40); WHITE BLOOD COUNT 8.6 10^3/uL (4.0-10.0)
[2020-05-22 12:43] LABS: HEMOGLOBIN A1c 7.9 %
[2020-05-22 12:50] LABS: ALBUMIN 3.6 GM/DL (3.2-5.2); ALT/SGPT 20 U/L (12-78); BILIRUBIN,TOTAL 0.3 MG/DL (0.2-1.0); BLOOD UREA NITROGEN 15 MG/DL (7-18); CALCIUM LEVEL 8.8 MG/DL (8.8-10.2); CARBON DIOXIDE LEVEL 29 MEQ/L (21-32); CHLORIDE LEVEL 104 MEQ/L (98-107); CHOLESTEROL LEVEL 269 MG/DL (<200); CHOLESTEROL RISK RATIO 5.977 (<5); FREE T4 1.23 NG/DL (0.76-1.46); GLOMERULAR FILTRATION RATE > 60.0 (>45); GLUCOSE, FASTING 195 MG/DL (70-100); HDL CHOLESTEROL 45 MG/DL (>40); LDL CHOLESTEROL 182 MG/DL (<100); NON-HDL-C 224 MG/DL; POTASSIUM SERUM 4.4 MEQ/L (3.5-5.1); SODIUM LEVEL 139 MEQ/L (136-145); TOTAL 25(OH) VITAMIN D 19.9 NG/ML (30.0-100.0); TOTAL PROTEIN 7.6 GM/DL (6.4-8.2); TRIGLYCERIDES LEVEL 210 MG/DL (<150)
== END ==
LOC: M LAB REF 11:38
PROVIDERS: ATTEND Nurse Practitioner Family
DX: I10 Essential (primary) hypertension (principal); E78.5 Hyperlipidemia, unspecified

== ENCOUNTER → 2021-11-14 | Outpatient (CLI) | payer OTHER ==
[~2021-11-14] MED LIST changes: +OMEP40CA4 PO; -OMEP40CA97 PO
== END ==
LOC: M WHC 13:31
PROVIDERS: ATTEND Pediatrics
DX: E04.9 Nontoxic goiter, unspecified (principal); N95.9 Unspecified menopausal and perimenopausal disorder; M85.89 Other specified disorders of bone density and structure, multiple sites

== ENCOUNTER 2022-12-05 11:51 | Emergency (ER) | payer OTHER ==
[~2022-12-05] VITALS: Ht 144.8 cm; Wt 80.2 kg
[2022-12-05] MEDS ORDERED: ISOVUE-370 76% 100ML VIAL As Ordered ONE (12:41)
[2022-12-05 12:45] VITALS: BP 174/81; TEMP 97.5; O2SAT 97
[2022-12-05 13:00] VITALS: BP 175/88; O2SAT 97
[2022-12-05 13:02] LABS: BASO # 0.1 10^3/uL (0.0-0.2); BASO % 0.5 % (0.0-1.0); EOS # 0.2 10^3/uL (0.0-0.5); EOS % 2.4 % (0.0-3.0); HEMATOCRIT 35.9 % (36.0-47.0); HEMOGLOBIN 11.1 g/dl (12.0-15.5); LYMPH % 22.2 % (24.0-44.0); MEAN CORPUSCULAR HEMOGLOBIN 25.5 pg (27.0-33.0); MEAN CORPUSCULAR HGB CONC 30.9 g/dl (32.0-36.5); MEAN CORPUSCULAR VOLUME 82.5 fl (80.0-96.0); MONO # 0.4 10^3/uL (0.0-0.8); MONO % 4.8 % (2.0-8.0); NEUTROPHILS # 6.4 10^3/uL (1.5-8.5); NEUTROPHILS % 69.8 % (36.0-66.0); PLATELET COUNT, AUTOMATED 265 10^3/uL (150-450); RED BLOOD COUNT 4.35 10^6/uL (4.00-5.40); WHITE BLOOD COUNT 9.1 10^3/uL (4.0-10.0)
[2022-12-05 13:20] LABS: INR 0.93; PROTHROMBIN TIME 12.7 SECONDS (12.5-14.5)
[2022-12-05 13:21] LABS: BLOOD UREA NITROGEN 13 MG/DL (9-23); CALCIUM LEVEL 9.4 MG/DL (8.3-10.6); CARBON DIOXIDE LEVEL 28 MMOL/L (20-31); CHLORIDE LEVEL 103 MMOL/L (98-107); CK-MB VALUE MASS < 1.0 NG/ML (<3.6); CPK CREATINE PHOSPHOKINASE 42 U/L (34-145); CREATININE FOR GFR 0.89 MG/DL (0.55-1.30); GLOMERULAR FILTRATION RATE > 60.0 (>45); GLUCOSE, FASTING 110 MG/DL (74-106); MB/CK RELATIVE INDEX 2.38 (< OR =4); PARTIAL THROMBOPLASTIN TIME 24.8 SECONDS (24.8-34.2); POTASSIUM SERUM 3.7 MMOL/L (3.5-5.1); SODIUM LEVEL 138 MMOL/L (136-145)
[2022-12-05 14:25] LABS: RSV AMPLIFICATION NEGATIVE (NEGATIVE)
[2022-12-05] MEDS ORDERED: CIPROFLOXACIN 400 MG in IV 1 EA IV ONE (14:40)
[2022-12-05] MEDS ORDERED: IBUPROFEN 600MG TAB PO ONE (14:45)
[2022-12-05] MEDS ORDERED: MED REC IN PROGRESS XX SCH (14:55)
[2022-12-05] MEDS ORDERED: IBUP1TAB7 PO (15:18)
[2022-12-05] MEDS ORDERED: CARV25TA PO (15:18)
[2022-12-05] MEDS ORDERED: LISI20TA33 PO (15:20)
[2022-12-05] MEDS ORDERED: METF10004 PO (15:24)
[2022-12-05] MEDS ORDERED: DULA3PEN SQ (15:30)
[2022-12-05] MEDS ORDERED: JARD1TAB3 PO (15:33)
[2022-12-05] MEDS ORDERED: ASPI81CH33 PO (15:36)
[2022-12-05] MEDS ORDERED: ROSU20TA61 PO (15:38)
[2022-12-05] MEDS ORDERED: HOME MED LIST COMPLETE! XX SCH (15:45)
[2022-12-05] MEDS ORDERED: CIPR250T26 PO (16:02)
[2022-12-05 17:30] VITALS: BP 154/81; TEMP 97.1; O2SAT 98
[2022-12-07] MEDS ORDERED: MACR100C43 PO (13:30)
== END 2022-12-05 17:54 | disposition home or self-care (01) ==
LOC: M ED 11:51 → EDBD 11:51 → M ED 17:54
DX: N39.0 Urinary tract infection, site not specified (principal); R53.1 Weakness; E11.9 Type 2 diabetes mellitus without complications; I10 Essential (primary) hypertension; E78.5 Hyperlipidemia, unspecified; K44.9 Diaphragmatic hernia without obstruction or gangrene; Z79.82 Long term (current) use of aspirin; Z79.4 Long term (current) use of insulin; Z79.899 Other long term (current) drug therapy; Z88.0 Allergy status to penicillin; Z88.6 Allergy status to analgesic agent; Z88.5 Allergy status to narcotic agent; Z88.8 Allergy status to other drugs, medicaments and biological substances
CPT/HCPCS: 36415; 70450; 70496; 70498; 71045; 80047; 80048; 81001; 82550; 82553; 85025; 85610; 85730; 87088; 87186; 87631; 93005; 93041; 94760; 96365; 96366; 97161; 97530; 99285; J0744; Q9967

== ENCOUNTER → 2023-09-29 | Outpatient (REF) | payer OTHER ==
[~2023-09-29] MED LIST changes: +ASPI81CH33 PO; +CARV25TA PO; +CIPR250T26 PO; +DULA3PEN SQ; +IBUP1TAB7 PO; +JARD1TAB3 PO; +LISI20TA33 PO; +MACR100C43 PO; +ROSU20TA61 PO
[2023-09-29 18:31] LABS: HEMOGLOBIN A1c 8.4 % (4.0-6.0)
[2023-09-29 18:37] LABS: ALBUMIN 3.3 G/DL (3.2-5.2); ALKALINE PHOSPHATASE 49 U/L (46-116); ALT/SGPT 11 U/L (7.0-40); AST/SGOT 10 U/L (<34); BILIRUBIN,TOTAL 0.3 MG/DL (0.3-1.2); BLOOD UREA NITROGEN 9 MG/DL (9-23); CALCIUM LEVEL 8.3 MG/DL (8.3-10.6); CARBON DIOXIDE LEVEL 28 MMOL/L (20-31); CHLORIDE LEVEL 107 MMOL/L (98-107); CHOLESTEROL LEVEL 137 MG/DL (<200); CREATININE FOR GFR 0.62 MG/DL (0.55-1.30); GLOMERULAR FILTRATION RATE > 60.0 (>45); GLUCOSE, FASTING 181 MG/DL (74-106); HDL CHOLESTEROL 48.8 MG/DL (>40); LDL CHOLESTEROL 55.8 MG/DL (<100); NON-HDL-C 88.2 MG/DL; POTASSIUM SERUM 4.5 MMOL/L (3.5-5.1); SODIUM LEVEL 142 MMOL/L (136-145); TOTAL PROTEIN 7.2 G/DL (5.7-8.2); TRIGLYCERIDES LEVEL 162 MG/DL (<150)
[2023-09-29 18:39] LABS: THYROID STIMULATING HORMONE 4.465 uIU/ML (0.55-4.78)
[2023-09-30 13:05] LABS: MAU/CREAT RATIO 236.7 MCG/MG (0.0-30.0)
== END ==
LOC: M LAB REF 17:39
PROVIDERS: ATTEND Pediatrics
DX: E11.69 Type 2 diabetes mellitus with other specified complication (principal); E78.5 Hyperlipidemia, unspecified

== ENCOUNTER → 2023-12-29 | Outpatient (REF) | payer OTHER ==
[2023-12-30 14:51] LABS: BASO % 0.4 % (0.0-1.0); EOS # 0.2 10^3/uL (0.0-0.5); EOS % 2.8 % (0.0-3.0); ERYTHROCYTE SEDIMENTATION RATE 49 mm/hr (0-30); HEMATOCRIT 35.6 % (36.0-47.0); HEMOGLOBIN 10.9 g/dl (12.0-15.5); LYMPH # 1.6 10^3/uL (1.5-5.0); LYMPH % 24.2 % (24.0-44.0); MEAN CORPUSCULAR HEMOGLOBIN 26.5 pg (27.0-33.0); MEAN CORPUSCULAR HGB CONC 30.6 g/dl (32.0-36.5); MEAN CORPUSCULAR VOLUME 86.4 fl (80.0-96.0); MONO # 0.4 10^3/uL (0.0-0.8); MONO % 5.2 % (2.0-8.0); NEUTROPHILS # 4.5 10^3/uL (1.5-8.5); NEUTROPHILS % 66.5 % (36.0-66.0); PLATELET COUNT, AUTOMATED 272 10^3/uL (150-450); RED BLOOD COUNT 4.12 10^6/uL (4.00-5.40); WHITE BLOOD COUNT 6.8 10^3/uL (4.0-10.0)
[2023-12-31 16:47] LABS: ANA PATTERN Cytoplasmic (NEGATIVE); ANA SCREEN, IFA POSITIVE (NEGATIVE); ANA TITER 1:40 titer (<1:40)
[2024-01-05 13:12] LABS: HLA-B27 Negative (Negative)
== END ==
LOC: M LAB REF 13:43
PROVIDERS: ATTEND Pediatrics
DX: M62.81 Muscle weakness (generalized) (principal)

== ENCOUNTER → 2024-01-07 | Outpatient (REF) | payer OTHER | LOC: M LAB REF 16:33 | PROVIDERS: ATTEND Pediatrics | DX: M62.81 Muscle weakness (generalized) (principal) ==

== ENCOUNTER → 2024-01-14 | Outpatient (CLI) | payer OTHER | LOC: M WHC 13:51 | PROVIDERS: ATTEND Pediatrics | DX: Z12.31 Encounter for screening mammogram for malignant neoplasm of breast (principal); R92.313 Mammographic fatty tissue density, bilateral breasts ==

== ENCOUNTER → 2025-01-05 | Outpatient (REF) | payer OTHER ==
[~2025-01-05] MED LIST changes: -ROSU20TA61 PO; +ROSU20TA86 PO
[2025-01-05 17:12] LABS: CREATININE, URINE 153.6 MG/DL
[2025-01-05 17:23] LABS: MALB URINE SIEMENS 407.0 MG/L; MAU/CREAT RATIO 264.9 MCG/MG (0.0-30.0)
== END ==
LOC: M LAB REF 16:25
PROVIDERS: ATTEND Pediatrics
DX: E11.21 Type 2 diabetes mellitus with diabetic nephropathy (principal)

== ENCOUNTER 2025-01-13 15:07 | Inpatient (IN) | payer OTHER ==
[~2025-01-13] VITALS: Ht 149.9 cm; Wt 78.8 kg
[~2025-01-13 15:07] MED LIST changes: -AMOX500T2 PO; -ASPI81TA26 PO; -CEFP100T PO; -FERR325T3 PO; -GLIP-320 PO; -HYDR-3490 PO; -KETO2CR TOP; -LIDO5TD TD; -MAG100TA PO; -SENN8.6T58 PO
[2025-01-13] MEDS: NS (Normal Saline) 0.9% 1,000 ML IV ONE (15:55)
[2025-01-13 16:05] LABS: BASO # 0.1 10^3/uL (0.0-0.2); BASO % 0.5 % (0.0-1.0); EOS # 0.6 10^3/uL (0.0-0.5); EOS % 5.7 % (0.0-3.0); LYMPH # 1.8 10^3/uL (1.5-5.0); LYMPH % 17.5 % (24.0-44.0); MONO # 0.6 10^3/uL (0.0-0.8); MONO % 5.4 % (2.0-8.0); NEUTROPHILS # 7.4 10^3/uL (1.5-8.5); NEUTROPHILS % 70.6 % (36.0-66.0); PLATELET COUNT, AUTOMATED 355 10^3/uL (150-450)
[2025-01-13 16:18] LABS: INR 0.95
[2025-01-13 16:27] LABS: FREE T4 1.36 NG/DL (0.89-1.76)
[2025-01-13 16:30] LABS: ALT/SGPT 15 U/L (7.0-40); AST/SGOT 52 U/L (<34); CALCIUM LEVEL 7.9 MG/DL (8.3-10.6); CARBON DIOXIDE LEVEL 27 MMOL/L (20-31); CHLORIDE LEVEL 100 MMOL/L (98-107); CK-MB VALUE MASS 1.5 NG/ML (<3.6); CPK CREATINE PHOSPHOKINASE 74 U/L (34-145); CREATININE FOR GFR 0.83 MG/DL (0.55-1.30); GLOMERULAR FILTRATION RATE 78.7 (>45); MB/CK RELATIVE INDEX 2.02 (< OR =4); POTASSIUM SERUM 4.8 MMOL/L (3.5-5.1); SODIUM LEVEL 140 MMOL/L (136-145)
[2025-01-13 17:22] LABS: KETONE, URINE AUTO RFX NEGATIVE (NEGATIVE); MUCUS, URINE RFX SMALL (NEGATIVE); NITRITE, URINE AUTO RFX NEGATIVE (NEGATIVE); RBC, URINE AUTO RFX 2 /HPF (0-3); SQUAM EPITHELIAL CELL UR AURFX 2 /HPF (0-6)
[2025-01-13 17:24] LABS: LEUKOCYTE ESTERASE UR AUTO RFX 1+ (NEGATIVE); WBC, URINE AUTO RFX 30 /HPF (0-3)
[2025-01-13 17:50] LABS: CK-MB VALUE MASS < 1.0 NG/ML (<3.6)
[2025-01-13 17:55] LABS: CPK CREATINE PHOSPHOKINASE 38 U/L (34-145)
[2025-01-13] MEDS: cefTRIAXone SOD 1 GM in DEXTROSE 5% (D5W) ADV/MINI-BAG 50 ML IV ONE (18:22)
[2025-01-13] MEDS: INSULIN LISPRO (NovoLOG) PER UNIT SC SCH (21:00)
[2025-01-13] MEDS ORDERED: ASPI81TA26 PO (21:33)
[2025-01-13] MEDS ORDERED: HYDR-3490 PO (21:33)
[2025-01-13] MEDS ORDERED: GLIP-320 PO (21:33)
[2025-01-13] MEDS ORDERED: HOME MED LIST COMPLETE! XX SCH (21:35)
[2025-01-13] MEDS ORDERED: GLUCAGON INJ 1 MG VIAL SC PRN (21:45)
[2025-01-13] MEDS ORDERED: DEXTROSE 50% 50 ML SYRINGE IV PRN (21:45)
[2025-01-13] MEDS ORDERED: GLUCOSE 4 GM CHEW PO PRN (21:45)
[2025-01-13] MEDS: ASPIRIN 81 MG ENTERIC TABLET PO SCH (22:42)
[2025-01-13] MEDS: ROSUVASTATIN 10 MG TAB PO SCH (22:42)
[2025-01-14 07:18] LABS: PLATELET COUNT, AUTOMATED 306 10^3/uL (150-450)
[2025-01-14 07:53] LABS: IRON (FE) 28 UG/DL (50-170); PERCENT SATURATION 8.1 % (13.2-45.0)
[2025-01-14 07:57] LABS: CALCIUM LEVEL 7.8 MG/DL (8.3-10.6); CARBON DIOXIDE LEVEL 29.0 MMOL/L (20-31); CHLORIDE LEVEL 102.0 MMOL/L (98-107); CREATININE FOR GFR 0.76 MG/DL (0.55-1.30); GLOMERULAR FILTRATION RATE 87.5 (>45); POTASSIUM SERUM 3.1 MMOL/L (3.5-5.1); SODIUM LEVEL 145.0 MMOL/L (136-145)
[2025-01-14] MEDS: INSULIN LISPRO (NovoLOG) PER UNIT SC SCH (08:13)
[2025-01-14] MEDS: OMEPRAZOLE 20MG CAP PO SCH (08:15)
[2025-01-14] MEDS: hydroCHLOROthiazide 25 MG TAB PO SCH (08:16)
[2025-01-14 08:46] LABS: ESTIMATED AVERAGE GLUCOSE 203.0 MG/DL (60-110)
[2025-01-14 09:28] LABS: C REACTIVE PROTEIN QUANTITATIV < 0.50 MG/DL (<1.0)
[2025-01-14] MEDS: POTASSIUM CHLORIDE 10% LIQ 20MEQ/15ML UDC PO ONE (09:35)
[2025-01-14 09:39] VITALS: BP 169/79
[2025-01-14 09:45] LABS: MAGNESIUM LEVEL 0.9 MG/DL (1.8-2.4)
[2025-01-14] MEDS: FERRIC CARBOXYMALTOSE INJ 750 MG, VIAL MATE ADAPTER 1 EACH in NS 100 ML IV ONE (11:40)
[2025-01-14] MEDS: MAG SULF 1GM/100ML (MAG RUN) 1 GM in IV 1 EA IV SCH (13:10)
[2025-01-14 16:00] VITALS: BP 132/80; TEMP 97.5; O2SAT 96
[2025-01-14] MEDS: cefTRIAXone SOD 1 GM in DEXTROSE 5% (D5W) ADV/MINI-BAG 50 ML IV SCH (17:28)
[2025-01-14 20:08] VITALS: BP 134/79; TEMP 97.7; O2SAT 97
[2025-01-14] MEDS: POTASSIUM CHLORIDE 10% LIQ 20MEQ/15ML UDC PO SCH (20:21)
[2025-01-15 03:35] VITALS: BP 137/86; TEMP 97.9; O2SAT 96
[2025-01-15 06:11] LABS: PLATELET COUNT, AUTOMATED 326 10^3/uL (150-450)
[2025-01-15 06:58] LABS: ALT/SGPT < 9 U/L (7.0-40); AST/SGOT 9 U/L (<34); CALCIUM LEVEL 8.6 MG/DL (8.3-10.6); CARBON DIOXIDE LEVEL 29 MMOL/L (20-31); CHLORIDE LEVEL 101 MMOL/L (98-107); CREATININE FOR GFR 0.87 MG/DL (0.55-1.30); GLOMERULAR FILTRATION RATE 74.4 (>45); MAGNESIUM LEVEL 1.5 MG/DL (1.8-2.4); POTASSIUM SERUM 4.2 MMOL/L (3.5-5.1); SODIUM LEVEL 139 MMOL/L (136-145)
[2025-01-15] MEDS: KETOCONAZOLE 2% CREAM TOP SCH (09:00)
[2025-01-15 11:28] VITALS: BP 136/86; TEMP 97.9; O2SAT 96
[2025-01-15] MEDS: MAGNESIUM OXIDE 400 MG TAB PO ONE (12:25)
[2025-01-15] MEDS: LIDOCAINE 5% PATCH TD SCH (12:26)
[2025-01-15 19:55] VITALS: BP 134/86; TEMP 97.7; O2SAT 98
[2025-01-16 04:00] VITALS: BP 134/85; TEMP 97.9; O2SAT 96
[2025-01-16] MEDS: MAGNESIUM OXIDE 400 MG TAB PO SCH (08:04)
[2025-01-16] MEDS: NYSTATIN 100,000 UNITS/GM TOPICAL PWD 15 GM TOP SCH (10:23)
[2025-01-16 12:00] VITALS: BP 123/71; TEMP 98.4; O2SAT 96
[2025-01-16 13:04] LABS: PLATELET COUNT, AUTOMATED 351 10^3/uL (150-450)
[2025-01-16 13:44] LABS: ALT/SGPT < 9 U/L (7.0-40); AST/SGOT 10 U/L (<34); CALCIUM LEVEL 8.8 MG/DL (8.3-10.6); CARBON DIOXIDE LEVEL 29 MMOL/L (20-31); CHLORIDE LEVEL 99 MMOL/L (98-107); CREATININE FOR GFR 0.89 MG/DL (0.55-1.30); GLOMERULAR FILTRATION RATE 72.4 (>45); POTASSIUM SERUM 4.0 MMOL/L (3.5-5.1); SODIUM LEVEL 139 MMOL/L (136-145)
[2025-01-17 04:44] VITALS: BP 170/70; TEMP 98.1; O2SAT 94
[2025-01-17] MEDS: ACETAMINOPHEN 325 MG TAB PO PRN (04:55)
[2025-01-17 05:43] LABS: BASO # 0.0 10^3/uL (0.0-0.2); BASO % 0.4 % (0.0-1.0); EOS # 0.5 10^3/uL (0.0-0.5); EOS % 5.9 % (0.0-3.0); LYMPH # 1.9 10^3/uL (1.5-5.0); LYMPH % 21.1 % (24.0-44.0); MONO # 0.5 10^3/uL (0.0-0.8); MONO % 5.3 % (2.0-8.0); NEUTROPHILS # 6.1 10^3/uL (1.5-8.5); NEUTROPHILS % 66.6 % (36.0-66.0); PLATELET COUNT, AUTOMATED 321 10^3/uL (150-450)
[2025-01-17 06:13] LABS: ALT/SGPT < 9 U/L (7.0-40); AST/SGOT 10 U/L (<34); CALCIUM LEVEL 8.8 MG/DL (8.3-10.6); CARBON DIOXIDE LEVEL 29 MMOL/L (20-31); CHLORIDE LEVEL 100 MMOL/L (98-107); CREATININE FOR GFR 1.04 MG/DL (0.55-1.30); GLOMERULAR FILTRATION RATE 60.0 (>45); MAGNESIUM LEVEL 1.4 MG/DL (1.8-2.4); PHOSPHORUS LEVEL 2.8 MG/DL (2.4-5.1); POTASSIUM SERUM 5.2 MMOL/L (3.5-5.1); SODIUM LEVEL 138 MMOL/L (136-145)
[2025-01-17 08:21] VITALS: BP 162/89
[2025-01-17] MEDS: MAGNESIUM OXIDE 400 MG TAB PO SCH (08:24)
[2025-01-17] MEDS ORDERED: LIDO5TD TD (08:26)
[2025-01-17] MEDS ORDERED: KETO2CR TOP (08:26)
[2025-01-17] MEDS ORDERED: FERR325T3 PO (08:33)
[2025-01-17] MEDS: PATIROMER SORBITEX CALCIUM 8.4GM POWDER PACKET PO ONE (09:29)
[2025-01-17 12:00] VITALS: BP 154/84; TEMP 97.7; O2SAT 98
[2025-01-17] MEDS ORDERED: CEFP100T PO (13:24)
[2025-01-17] MEDS ORDERED: MAG100TA PO (13:25)
[2025-01-17] MEDS ORDERED: AMOX500T2 PO (15:17)
[2025-01-17] MEDS ORDERED: MACR100C43 PO (15:19)
[2025-01-17] MEDS ORDERED: SENN8.6T58 PO (15:20)
== END 2025-01-17 16:29 | disposition home or self-care (01) | DRG 463 ==
LOC: EDBD 15:07 → M ED 15:07 → M ED INP 15:08 → OBSVTOIN 01-14 14:14 → M MSPAV 01-14 16:17
PROVIDERS: ADMIT Internal Medicine; ATTEND Student in an Organized Health Care Education/Training Program
DX: N12 Tubulo-interstitial nephritis, not specified as acute or chronic (principal); I10 Essential (primary) hypertension; E83.42 Hypomagnesemia; B96.20 Unspecified Escherichia coli [E. coli] as the cause of diseases classified elsewhere; E11.9 Type 2 diabetes mellitus without complications; B36.0 Pityriasis versicolor; E87.6 Hypokalemia; S32.010D Wedge compression fracture of first lumbar vertebra, subsequent encounter for fracture with routine healing; R42 Dizziness and giddiness; K21.9 Gastro-esophageal reflux disease without esophagitis; K44.9 Diaphragmatic hernia without obstruction or gangrene; D50.9 Iron deficiency anemia, unspecified; E78.5 Hyperlipidemia, unspecified; Z79.82 Long term (current) use of aspirin; Z79.84 Long term (current) use of oral hypoglycemic drugs; Z79.899 Other long term (current) drug therapy; Z88.0 Allergy status to penicillin; Z88.5 Allergy status to narcotic agent; Z88.6 Allergy status to analgesic agent; Z88.8 Allergy status to other drugs, medicaments and biological substances

== ENCOUNTER → 2025-01-13 | Outpatient (REF) | payer OTHER ==
[~2025-01-13] MED LIST changes: +AMOX500T2 PO; +ASPI81TA26 PO; +CEFP100T PO; +FERR325T3 PO; +GLIP-320 PO; +HYDR-3490 PO; +KETO2CR TOP; +LIDO5TD TD; +MAG100TA PO; +SENN8.6T58 PO
[2025-01-13 17:15] LABS: CREATININE, URINE 87.6 MG/DL
[2025-01-13 17:16] LABS: MALB URINE SIEMENS 317.0 MG/L; MAU/CREAT RATIO 361.8 MCG/MG (0.0-30.0)
== END ==
LOC: M LAB REF 16:19
PROVIDERS: ATTEND Pediatrics
DX: E11.21 Type 2 diabetes mellitus with diabetic nephropathy (principal)